=== PATIENT | male | born 1965 | race Caucasian/White ===

== ENCOUNTER 2021-01-24 11:01 | Emergency (ER) | payer OTHER ==
[2021-01-24 11:39] VITALS: BP 146/87; PULSE 106; RESP 20; TEMP 99
[2021-01-24] MEDS ORDERED: SODIUM CHLORIDE 0.9% 500 ML 500 ML IV STA (13:14)
[2021-01-24] MEDS ORDERED: BAMLANIVIMAB (EUA) 700 MG, ETESEVIMAB (EUA) 1,400 MG in SODIUM CHLORIDE 0.9% 50 ML IVPB ONE (13:30)
[2021-01-24] MEDS ORDERED: SODIUM CHLORIDE 0.9% 50 ML IVPB ONE (13:30)
--- NOTE | 2021-01-24 15:21 | ED ---
URI HPI - General Chief Complaint: Upper Respiratory Infection Stated Complaint: covid+, wants infusion Time Seen by Provider: 01/24/21 12:30 Source: patient, RN notes reviewed Mode of arrival: ambulatory Limitations: no limitations - History of Present Illness Initial Comments: Patient is a 55-year-old male with history of diabetes, hypertension, presenting to the emergency department requesting: Antibodies. Patient and his were both tested yesterday at urgent care, they were both positive. Patient states his symptoms began days ago with fevers, chills, no cough. He denies any nausea or vomiting, his appetite has been a little bit lower but still able to drink lots of fluids. He did take Tylenol about 1 hour prior to arrival. He denies any chest pain or shortness of breath. He has no further complaints at this time. His vital signs are stable upon arrival. - Related Data Home Medications Medication Instructions Recorded Confirmed Atorvastatin [Lipitor] 10 mg PO DAILY 01/24/21 01/24/21 Empagliflozin [Jardiance] 25 mg PO DAILY 01/24/21 01/24/21 Lisinopril-Hctz 10-12.5 mg 1 tab PO DAILY 01/24/21 01/24/21 [Zestoretic 10-12.5] Multivitamins, Thera [Multivitamin 1 tab PO DAILY 01/24/21 01/24/21 (formulary)] metFORMIN HCL 500 mg PO HS 01/24/21 01/24/21 Previous Rx's Medication Instructions Recorded Albuterol Inhaler [Ventolin Hfa 1 puff INHALATION RT-QID PRN #8 gm 01/24/21 Inhaler] Allergies Allergy/AdvReac Type Severity Reaction Status Date / Time Penicillins Allergy Unknown Verified 01/24/21 14:56 Review of Systems ROS Statement: Those systems with pertinent positive or pertinent negative responses have been documented in the HPI. ROS Other: All systems not noted in ROS Statement are negative. 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 Patient is nontoxic and in no acute distress. HEAD: Atraumatic, normocephalic. EYES: Pupils equal round and reactive to light, extraocular movements intact, sclera anicteric, conjunctiva are normal. Eyelids were unremarkable. ENT: Moist mucous membranes. NECK: Normal range of motion, supple without lymphadenopathy or JVD. LUNGS: Unlabored respirations. Breath sounds clear to auscultation bilaterally and equal. No wheezes rales or rhonchi. HEART: Regular rate and rhythm without murmurs, rubs or gallops. ABDOMEN: Soft, nontender, normoactive bowel sounds. No guarding, no rebound. No masses appreciated. MUSCULOSKELETAL: Normal extremities with adequate strength and normal range of motion, no pitting or edema. No clubbing or cyanosis. NEUROLOGICAL: Patient is alert and oriented x 3. SKIN: Warm, Dry, normal turgor, no rashes or lesions noted. Limitations: no limitations Course Vital Signs 01/24/21 11:36 Temperature 99.0 F Pulse Rate 106 H Respiratory 20 Rate Blood Pressure 146/87 O2 Sat by Pulse 95 Oximetry Medical Decision Making - Medical Decision Making Patient is a 55-year-old male here requesting covid Antibodies. Patient and his are both tested yesterday, both are positive. I symptoms for about 4 days. His vital signs are stable upon arrival, exam is unremarkable. Patient did receive covid Antibodies infusion, no adverse side effects. I will prescribe him an albuterol inhaler for home. Recommend any Tylenol or Motrin for any fevers or body aches, continue to increase fluids. He is agreeable to this plan of care and he is stable for discharge. Disposition Clinical Impression: COVID-19 Disposition: HOME SELF-CARE Condition: Stable Instructions (If sedation given, give patient instructions): Coronavirus Disease 2019 (COVID-19) Additional Instructions: Please return to the Emergency Department if symptoms worsen or any other concerns. Use inhaler as needed for any shortness of breath. May take Tylenol and/or Motrin for any fevers or body aches. Continue to increase your fluids. Follow-up with your primary care as needed. Prescriptions: Albuterol Inhaler [Ventolin Hfa Inhaler] 1 puff INHALATION RT-QID PRN #8 gm PRN Reason: Shortness Of Breath Is patient prescribed a controlled substance at d/c from ED?: No Referrals: Arturo Moran MD [Primary Care Provider] - 1-2 days Time of Disposition: 15:21
== END 2021-01-24 15:51 | disposition home or self-care (01) ==
LOC: EC 11:01
DX: U07.1 COVID-19 (principal); E11.9 Type 2 diabetes mellitus without complications; I10 Essential (primary) hypertension; Z88.0 Allergy status to penicillin; Z79.899 Other long term (current) drug therapy; Z79.84 Long term (current) use of oral hypoglycemic drugs
CPT/HCPCS: 99283; 96365; 96361; J3490

== ENCOUNTER 2021-06-29 09:43 | Emergency (ER) | payer OTHER ==
[2021-06-29] MEDS ORDERED: KETOROLAC 15 MG/ML 1 ML VIAL IM STA (10:20)
--- NOTE | 2021-06-29 10:44 | ED ---
General Adult HPI - General Chief complaint: Urogenital Stated complaint: Groin Pain/Swelling Time Seen by Provider: 06/29/21 10:04 Source: patient Mode of arrival: ambulatory Limitations: no limitations - History of Present Illness Initial comments: This 55-year-old male with past medical history of diabetes mellitus and hypertension presents to the emergency department with scrotal swelling and pain 5 days. Patient states he has had this on and off for years, however he states he usually goes away on its own within 2 days. Patient states that scrotal swelling is worse on the left side. Patient states she has been taking ibuprofen, Tylenol and icing his scrotum which has slightly seemed to help. Patient states pain is 4/10. Patient describes the pain as pressure and states he gets episodic burning. Patient states she is sexually active only with his . Patient denies any trouble urinating. He denies any urinary burning, urgency, frequency, dribbling. Patient states he has had similar experiences in his past and states one time he did have a UTI which was causing his symptoms. Patient states his primary care doctor is Dr. Moran did check him for prostate cancer about 5-6 months ago which did come back negative. He denies any change in his bowel or bladder. He denies any fever, nausea or vomiting. Patient denies any chest pain, shortness of breath, abdominal pain, heaviness, dizziness, headache, change in vision. - Related Data Home Medications Medication Instructions Recorded Confirmed Atorvastatin [Lipitor] 10 mg PO DAILY 01/24/21 06/29/21 Empagliflozin [Jardiance] 25 mg PO DAILY 01/24/21 06/29/21 Multivitamins, Thera [Multivitamin 1 tab PO DAILY 01/24/21 06/29/21 (formulary)] metFORMIN HCL 500 mg PO HS 01/24/21 06/29/21 Lisinopril-Hctz 20-12.5 mg 1 tab PO DAILY 06/29/21 06/29/21 [Zestoretic 20-12.5] [place]-3 Fatty Acids/Fish Oil [Fish 1 cap PO HS 06/29/21 06/29/21 Oil 1,000 mg Softgel] Allergies Allergy/AdvReac Type Severity Reaction Status Date / Time Penicillins Allergy Unknown Verified 06/29/21 11:18 Review of Systems ROS Statement: Those systems with pertinent positive or pertinent negative responses have been documented in the HPI. ROS Other: All systems not noted in ROS Statement are negative. 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 Absent: scleral icterus, conjunctival injection, periorbital swelling ENT exam: Present: normal exam, mucous membranes moist Neck exam: Present: normal inspection, full ROM. Absent: tenderness, meningismus, lymphadenopathy Respiratory exam: Present: normal lung sounds bilaterally. Absent: respiratory distress, wheezes, rales, rhonchi, stridor Cardiovascular Exam: Present: regular rate, normal rhythm, normal heart sounds. Absent: systolic murmur, diastolic murmur, rubs, gallop, clicks GI/Abdominal exam: Present: soft, normal bowel sounds. Absent: distended, tenderness, guarding, rebound, rigid exam: Present: testicular tenderness (Bilateral testicles tender to palpation. Scrotum with slight swelling on left side. No mass palpated.) Extremities exam: Present: normal inspection, full ROM, normal capillary refill. Absent: tenderness, pedal edema, joint swelling, calf tenderness Back exam: Present: normal inspection, full ROM. Absent: CVA tenderness (R), CVA tenderness (L), paraspinal tenderness, vertebral tenderness Neurological exam: Present: alert, oriented X3, CN II-XII intact, normal gait Psychiatric exam: Present: normal affect, normal mood Skin exam: Present: warm, dry, intact, normal color. Absent: rash Course Vital Signs 06/29/21 09:51 Temperature 97.3 F L Pulse Rate 82 Respiratory 18 Rate Blood Pressure 161/91 O2 Sat by Pulse 96 Oximetry Medical Decision Making - Medical Decision Making Ultrasound scrotum with Doppler impression: No sonographic evidence for testicular torsion. Left greater than right varicocele. Lack of incomplete color flow within the right-sided varicocele could reflect slow flow. Thrombosed varicoceles are less likely given that the pain is on left side. Small left hydrocele. Urine without any ketones, blood, nitrites. Glucose 4+. Patient states he does take his glucose daily and states it was a little bit high today at 172, He did take his diabetic medication at home and states he'll continue to check it throughout the day. Prior to discharge patient states the Toradol shot did significantly decrease his pain. Patient to follow-up with urologist in next 1-2 days.. Patient to follow-up with his primary care prov ider next 1-2 days. Strict return precautions were discussed. Patient verbally agreed to plan. Patient sent home in stable condition. Discussed case and findings in detail with my attending, . - Lab Data Lab Results 06/29/21 Range/Units 11:40 Urine Color Yellow Urine Appearance Clear (Clear) Urine pH 6.5 (5.0-8.0) Ur Specific [place] 1.031 (1.001-1.035) Urine Protein Negative (Negative) Urine Glucose (UA) 4+ H (Negative) Urine Ketones Negative (Negative) Urine Blood Negative (Negative) Urine Nitrite Negative (Negative) Urine Bilirubin Negative (Negative) Urine Urobilinogen <2.0 (<2.0) mg/dL Ur Leukocyte Esterase Negative (Negative) Disposition Clinical Impression: Bilateral varicoceles, Hydrocele, left Disposition: HOME SELF-CARE Condition: Stable Instructions (If sedation given, give patient instructions): Hydrocele (ED), Varicocele (ED) Additional Instructions: Please follow-up with the urologist and primary care provider next 1-2 days. Return to the emergency department with any new, worsening or concerning symptoms. Is patient prescribed a controlled substance at d/c from ED?: No Referrals: Arturo Moran MD [Primary Care Provider] - 1-2 days Reji Acuña MD [STAFF PHYSICIAN] - 1-2 days Time of Disposition: 12:11
--- NOTE | 2021-06-29 11:23 | US ---
EXAMINATION TYPE: US scrotum with doppler. TECHNIQUE: Grayscale and color Doppler Duplex imaging performed of the scrotum. DATE OF EXAM: 06/29/2021 COMPARISON: NONE CLINICAL HISTORY: 55-year-old male pain/swelling. On and off left testicle pain for 8 years, perineum pain also, no swelling, no injury FINDINGS: EXAM MEASUREMENTS: TESTICLES: Right Testicle: 2.3 x 2.0 x 1.0 cm Left Testicle: 3.9 x 2.7 x 1.7 cm Doppler performed to assess for testicular vascularity; good bilateral color flow and waveforms are s een. There is no evidence of testicular torsion. EPIDIDYMIS HEAD: Right Epididymis: 0.7 cm Left Epididymis: 1.2 cm Presence of hydroceles: mild lateral to left testicle Presence of varicoceles: bilateral vessels seen lateraL to testicles *on the right vessels did not fully fill with color, even with valsalva, possibly due to slow flow *on the left there is a larger collection of varicose vessels that appeared to dilate with va lsalva Docket Specialist notes:imaging of perineum appears wnl IMPRESSION: 1. No sonographic evidence for testicular torsion. 2. Left greater than right varicoceles. The lack of incomplete color flow within the right-sided vari coceles could reflect very slow flow. Thrombosed varicoceles are less likely given that pain is on th e left side. 3. Small hydrocele on the left.
[2021-06-29 12:01] LABS: Appearance,Urine Clear (Clear); Bilirubin,Urine Negative (Negative); Blood,Urine Negative (Negative); Color,Urine Yellow; Glucose,Urine (UA) 4+ (Negative); Ketones,Urine Negative (Negative); Leukocyte Esterase,Urine Negative (Negative); Nitrite,Urine Negative (Negative); PH, Urine 6.5 (5.0-8.0); Protein,Urine Negative (Negative); Specific Gravity,Urine 1.031 (1.001-1.035); Urobilinogen,Urine <2.0 mg/dL (<2.0)
[2021-06-29 12:36] VITALS: BP 128/78; PULSE 78; RESP 16; TEMP 98.2
== END 2021-06-29 12:35 | disposition home or self-care (01) ==
LOC: EC 09:43
DX: I86.1 Scrotal varices (principal); N43.3 Hydrocele, unspecified; E11.9 Type 2 diabetes mellitus without complications; I10 Essential (primary) hypertension; Z88.0 Allergy status to penicillin
CPT/HCPCS: 81003; 93975; 76870; 99284; 96372; J1885

== ENCOUNTER 2021-07-15 18:03 | Observation (INO) | payer OTHER ==
[~2021-07-15 18:03] MED LIST: BUDESONIDE 1 MG/2 ML NEBU INHALATION ONE
[2021-07-15] MEDS ORDERED: IPRATROPIUM-ALBUTEROL 3 ML NEB INHALATION STA (18:38)
[2021-07-15] MEDS ORDERED: MAGNESIUM SULFATE-D5W PMX 1 GM in DEXTROSE/WATER 1 100ML.BAG IVPB STA (18:38)
[2021-07-15] MEDS ORDERED: methylPREDNISolone SOD SUCCI 125 MG/2 ML VIAL IV STA (18:38)
[2021-07-15 19:07] LABS: AST 52 U/L (17-59); African American GFR (CKD) >90 (>60 ml/min/1.73 sqM); Albumin 4.6 g/dL (3.5-5.0); Anion Gap 12 mmol/L; Blood Urea Nitrogen 14 mg/dL (9-20); Calcium 9.3 mg/dL (8.4-10.2); Carbon Dioxide 25 mmol/L (22-30); Chloride 104 mmol/L (98-107); Glucose 248 mg/dL (74-99); Non-African American GFR(CKD) 80 (>60 ml/min/1.73 sqM); Sodium 141 mmol/L (137-145); Total Bilirubin 0.8 mg/dL (0.2-1.3)
[2021-07-15 19:09] LABS: Basophils % (A) 1 %; Eosinophils # (A) 0.1 k/uL (0-0.7); Eosinophils % (A) 2 %; HCT 46.3 % (39.0-53.0); HGB 16.2 gm/dL (13.0-17.5); Lymphocytes # (A) 2.1 k/uL (1.0-4.8); Lymphocytes % (A) 31 %; MCH 28.6 pg (25.0-35.0); MCV 81.9 fL (80.0-100.0); Mean Platelet Volume 9.2; Monocytes # (A) 0.4 k/uL (0-1.0); Monocytes % (A) 7 %; Neutrophils % (A) 58 %; Platelet Count 192 k/uL (150-450); RBC 5.65 m/uL (4.30-5.90); RDW 13.9 % (11.5-15.5); WBC 6.8 k/uL (3.8-10.6)
--- NOTE | 2021-07-15 19:12 | ED ---
General Adult HPI - General Chief complaint: Shortness of Breath Stated complaint: MEGHANN Time Seen by Provider: 07/15/21 18:10 Source: patient Mode of arrival: ambulatory Limitations: no limitations - History of Present Illness Initial comments: 55-year-old male with past medical history of diabetes, hypertension, recurrent bronchitis presents to the emergency department with shortness of breath. He has been short of breath since Saturday after he developed symptoms of the common cold. Admits to nasal congestion, nonproductive cough with intermittent chills. Denies any sick contacts with similar symptoms. Did have Covid last January and received antibodies. He is not vaccinated against Covid. He denies any chest pain. No previous cardiac disease. No history of heart failure. Denies history of DVT or PE. Patient comes in diffusely wheezy. He uses his inhaler only when needed. Did use a couple times today without improvement in his symptoms. 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 No other alleviating, precipitating or modifying factors - Related Data Home Medications Medication Instructions Recorded Confirmed Atorvastatin [Lipitor] 10 mg PO DAILY 01/24/21 07/15/21 Empagliflozin [Jardiance] 25 mg PO DAILY 01/24/21 07/15/21 Multivitamins, Thera [Multivitamin 1 tab PO DAILY 01/24/21 07/15/21 (formulary)] metFORMIN HCL 500 mg PO HS 01/24/21 07/15/21 Lisinopril-Hctz 20-12.5 mg 1 tab PO DAILY 06/29/21 07/15/21 [Zestoretic 20-12.5] [place]-3 Fatty Acids/Fish Oil [Fish 1 cap PO HS 06/29/21 07/15/21 Oil 1,000 mg Softgel] Doxycycline Hyclate 100 mg PO BID 07/15/21 07/15/21 Tamsulosin [Flomax] 0.4 mg PO DAILY 07/15/21 07/15/21 Allergies Allergy/AdvReac Type Severity Reaction Status Date / Time Penicillins Allergy Unknown Verified 07/15/21 19:23 Review of Systems ROS Statement: Those systems with pertinent positive or pertinent negative responses have been documented in the HPI. ROS Other: All systems not noted in ROS Statement are negative. 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 Absent: scleral icterus, conjunctival injection, periorbital swelling ENT exam: Present: normal exam, mucous membranes moist Neck exam: Present: normal inspection. Absent: tenderness, meningismus, lymphadenopathy Respiratory exam: Present: wheezes, accessory muscle use, decreased breath sounds. Absent: respiratory distress, rales, rhonchi, stridor Cardiovascular Exam: Present: regular rate, normal rhythm, normal heart sounds. Absent: systolic murmur, diastolic murmur, rubs, gallop, clicks GI/Abdominal exam: Present: soft, normal bowel sounds. Absent: distended, tenderness, guarding, rebound, rigid Extremities exam: Present: normal inspection, full ROM, normal capillary refill. Absent: tenderness, pedal edema, joint swelling, calf tenderness Back exam: Present: normal inspection Neurological exam: Present: alert, oriented X3, CN II-XII intact Psychiatric exam: Present: normal affect, normal mood Skin exam: Present: warm, dry, intact, normal color. Absent: rash Course Vital Signs 07/15/21 07/15/21 07/15/21 18:04 19:24 19:25 Temperature 99 F Pulse Rate 100 110 H 103 H Respiratory 26 H 20 Rate Blood Pressure 184/134 135/69 O2 Sat by Pulse 96 94 L Oximetry 07/15/21 07/15/21 07/15/21 19:33 20:51 21:33 Temperature Pulse Rate 105 H 71 101 H Respiratory 18 18 Rate Blood Pressure 138/71 144/71 O2 Sat by Pulse 95 95 Oximetry EKG Findings - EKG Comments: EKG Findings:: EKG demonstrates sinus tachycardia with a rate of 108. NH inter shanelle 167. QRS 98. QTC 392. No acute ST segment elevations or depressions Medical Decision Making - Medical Decision Making Upon arrival patient was placed into room 2. He is diffusely wheezy, hypertensive and tachycardic. He is placed on nasal cannula. IV is established laboratory studies are conducted. Patient does receive a breathing treatment. Laboratory studies are reviewed and lactic is 2.6. Covid and influenza are not detected. Chest x-ray demonstrates no acute process. He was given 125 of Solu-Medrol and a gram of magnesium. Patient does get up to evaluate the bathroom and desats to 88%. Due to his hypoxia with ambulation recommended at least overnight observation for which the patient did agree to. Patient will be admitted to the [facility]. - Lab Data Result diagrams: 07/16/21 02:34 07/16/21 02:34 Lab Results 07/15/21 07/15/21 07/15/21 Range/Units 18:47 18:47 18:47 WBC 6.8 (3.8-10.6) k/uL RBC 5.65 (4.30-5.90) m/uL Hgb 16.2 (13.0-17.5) gm/dL Hct 46.3 (39.0-53.0) % MCV 81.9 (80.0-100.0) fL MCH 28.6 (25.0-35.0) pg MCHC 35.0 (31.0-37.0) g/dL RDW 13.9 (11.5-15.5) % Plt Count 192 (150-450) k/uL MPV 9.2 Neutrophils % 58 % Lymphocytes % 31 % Monocytes % 7 % Eosinophils % 2 % Basophils % 1 % Neutrophils # 4.0 (1.3-7.7) k/uL Lymphocytes # 2.1 (1.0-4.8) k/uL Monocytes # 0.4 (0-1.0) k/uL Eosinophils # 0.1 (0-0.7) k/uL Basophils # 0.0 (0-0.2) k/uL PT (9.0-12.0) sec INR (<1.2) APTT (22.0-30.0) sec Sodium (137-145) mmol/L Potassium (3.5-5.1) mmol/L Chloride (98-107) mmol/L Carbon Dioxide (22-30) mmol/L Anion Gap mmol/L BUN (9-20) mg/dL Creatinine (0.66-1.25) mg/dL Est GFR (CKD-EPI)AfAm (>60 ml/min/1.73 sqM) Est GFR (CKD-EPI)NonAf (>60 ml/min/1.73 sqM) Glucose (74-99) mg/dL Lactic Ac Sepsis Rflx Plasma Lactic Acid Addi (0.7-2.0) mmol/L Calcium (8.4-10.2) mg/dL Magnesium (1.6-2.3) mg/dL Total Bilirubin (0.2-1.3) mg/dL AST (17-59) U/L ALT (4-49) U/L Alkaline Phosphatase (38-126) U/L Troponin I (0.000-0.034) ng/mL NT-Pro-B Natriuret Pep pg/mL Total Protein (6.3-8.2) g/dL Albumin (3.5-5.0) g/dL Coronavirus (PCR) Not Detected (Not Detectd) Influenza Type A RNA Not Detected (Not Detectd) Influenza Type B (PCR) Not Detected (Not Detectd) 07/15/21 07/15/21 07/15/21 Range/Units 18:47 18:47 18:47 WBC (3.8-10.6) k/uL RBC (4.30-5.90) m/uL Hgb (13.0-17.5) gm/dL Hct (39.0-53.0) % MCV (80.0-100.0) fL MCH (25.0-35.0) pg MCHC (31.0-37.0) g/dL RDW (11.5-15.5) % Plt Count (150-450) k/uL MPV Neutrophils % % Lymphocytes % % Monocytes % % Eosinophils % % Basophils % % Neutrophils # (1.3-7.7) k/uL Lymphocytes # (1.0-4.8) k/uL Monocytes # (0-1.0) k/uL Eosinophils # (0-0.7) k/uL Basophils # (0-0.2) k/uL PT 10.2 (9.0-12.0) sec INR 0.9 (<1.2) APTT 22.8 (22.0-30.0) sec Sodium 141 (137-145) mmol/L Potassium 4.3 (3.5-5.1) mmol/L Chloride 104 (98-107) mmol/L Carbon Dioxide 25 (22-30) mmol/L Anion Gap 12 mmol/L BUN 14 (9-20) mg/dL Creatinine 1.06 (0.66-1.25) mg/dL Est GFR (CKD-EPI)AfAm >90 (>60 ml/min/1.73 sqM) Est GFR (CKD-EPI)NonAf 80 (>60 ml/min/1.73 sqM) Glucose 248 H (74-99) mg/dL Lactic Ac Sepsis Rflx Plasma Lactic Acid Addi 2.6 H* (0.7-2.0) mmol/L Calcium 9.3 (8.4-10.2) mg/dL Magnesium 2.2 (1.6-2.3) mg/dL Total Bilirubin 0.8 (0.2-1.3) mg/dL AST 52 (17-59) U/L ALT 69 H (4-49) U/L Alkaline Phosphatase 74 (38-126) U/L Troponin I (0.000-0.034) ng/mL NT-Pro-B Natriuret Pep pg/mL Total Protein 8.0 (6.3-8.2) g/dL Albumin 4.6 (3.5-5.0) g/dL Coronavirus (PCR) (Not Detectd) Influenza Type A RNA (Not Detectd) Influenza Type B (PCR) (Not Detectd) 07/15/21 07/15/21 07/15/21 Range/Units 18:47 18:47 19:19 WBC (3.8-10.6) k/uL RBC (4.30-5.90) m/uL Hgb (13.0-17.5) gm/dL Hct (39.0-53.0) % MCV (80.0-100.0) fL MCH (25.0-35.0) pg MCHC (31.0-37.0) g/dL RDW (11.5-15.5) % Plt Count (150-450) k/uL MPV Neutrophils % % Lymphocytes % % Monocytes % % Eosinophils % % Basophils % % Neutrophils # (1.3-7.7) k/uL Lymphocytes # (1.0-4.8) k/uL Monocytes # (0-1.0) k/uL Eosinophils # (0-0.7) k/uL Basophils # (0-0.2) k/uL PT (9.0-12.0) sec INR (<1.2) APTT (22.0-30.0) sec Sodium (137-145) mmol/L Potassium (3.5-5.1) mmol/L Chloride (98-107) mmol/L Carbon Dioxide (22-30) mmol/L Anion Gap mmol/L BUN (9-20) mg/dL Creatinine (0.66-1.25) mg/dL Est GFR (CKD-EPI)AfAm (>60 ml/min/1.73 sqM) Est GFR (CKD-EPI)NonAf (>60 ml/min/1.73 sqM) Glucose (74-99) mg/dL Lactic Ac Sepsis Rflx Y Plasma Lactic Acid Addi (0.7-2.0) mmol/L Calcium (8.4-10.2) mg/dL Magnesium (1.6-2.3) mg/dL Total Bilirubin (0.2-1.3) mg/dL AST (17-59) U/L ALT (4-49) U/L Alkaline Phosphatase (38-126) U/L Troponin I <0.012 (0.000-0.034) ng/mL NT-Pro-B Natriuret Pep <11 pg/mL Total Protein (6.3-8.2) g/dL Albumin (3.5-5.0) g/dL Coronavirus (PCR) (Not Detectd) Influenza Type A RNA (Not Detectd) Influenza Type B (PCR) (Not Detectd) Disposition Clinical Impression: Bronchospasm, Tachycardia, Hypoxia Disposition: ADMITTED IP TO THIS HOSP Condition: Stable Is patient prescribed a controlled substance at d/c from ED?: No Decision to Admit Reason: Admit from EC Decision Date: 07/15/21 Decision Time: 20:48
[2021-07-15 19:19] LABS: Potassium 4.3 mmol/L (3.5-5.1)
[2021-07-15 19:20] LABS: ALT 69 U/L (4-49); Alkaline Phosphatase 74 U/L (38-126); Magnesium 2.2 mg/dL (1.6-2.3)
--- NOTE | 2021-07-15 19:21 | XR ---
EXAMINATION TYPE: XR chest 2V DATE OF EXAM: 07/15/2021 COMPARISON: 01/31/2014 HISTORY: Difficulty breathing TECHNIQUE: 2 views FINDINGS: Heart and mediastinum are normal. Lungs are clear. Diaphragm is normal. Bony thorax is inta ct. IMPRESSION: Normal chest. No change.
[2021-07-15 19:24] LABS: INR 0.9 (<1.2); Partial Thromboplastin Time 22.8 sec (22.0-30.0); Prothrombin Time 10.2 sec (9.0-12.0)
[2021-07-15] MEDS ORDERED: NALOXONE 0.4 MG/ML 1 ML VIAL IV PRN (20:49)
[2021-07-15 22:24] LABS: Glucose,Whole Blood 261 mg/dL (75-99)
[2021-07-15] MEDS ORDERED: IPRATROPIUM-ALBUTEROL 3 ML NEB INHALATION PRN (23:07)
[2021-07-15] MEDS ORDERED: INSULIN ASPART (NovoLOG) 100 UNIT/ML VIAL SQ SCH (23:13)
[2021-07-15] MEDS: IPRATROPIUM-ALBUTEROL 3 ML NEB INHALATION SCH (23:56)
[2021-07-16 00:10] LABS: Glucose,Whole Blood 277 mg/dL (75-99)
[2021-07-16] MEDS: INSULIN ASPART (NovoLOG) 100 UNIT/ML VIAL SQ SCH ×5 (00:46→20:36)
[2021-07-16] MEDS: methylPREDNISolone SOD SUCCI 40 MG/ML 1 ML VIAL IV SCH ×3 (02:54→20:36)
[2021-07-16 03:13] LABS: Basophils % (A) 0 %; Eosinophils % (A) 0 %; HCT 48.7 % (39.0-53.0); HGB 15.9 gm/dL (13.0-17.5); Lymphocytes # (A) 0.7 k/uL (1.0-4.8); Lymphocytes % (A) 9 %; MCHC 32.6 g/dL (31.0-37.0); MCV 85.8 fL (80.0-100.0); Mean Platelet Volume 9.2; Monocytes # (A) 0.1 k/uL (0-1.0); Monocytes % (A) 2 %; Neutrophils # (A) 7.2 k/uL (1.3-7.7); Neutrophils % (A) 89 %; Platelet Count 172 k/uL (150-450); RBC 5.67 m/uL (4.30-5.90); RDW 13.4 % (11.5-15.5); WBC 8.1 k/uL (3.8-10.6)
[2021-07-16] MEDS: IPRATROPIUM-ALBUTEROL 3 ML NEB INHALATION SCH ×5 (04:40→20:28)
[2021-07-16] MEDS: SODIUM CHLORIDE 0.9% 1,000 ML IV SCH ×2 (05:45→20:36)
[2021-07-16 07:11] LABS: Glucose,Whole Blood 304 mg/dL (75-99)
[2021-07-16] MEDS: BUDESONIDE 1 MG/2 ML NEBU INHALATION SCH ×2 (08:18→20:28)
[2021-07-16] MEDS ORDERED: FAMOTIDINE 20 MG/2 ML VIAL IV SCH (09:30)
[2021-07-16 09:31] LABS: African American GFR (CKD) 80.6 (60.0-200.0); Anion Gap 17.3 mmol/L (10.00-18.00); BUN/Creat Ratio 12.2 Ratio (12.00-20.00); Blood Urea Nitrogen 14.4 mg/dL (9.0-27.0); Calcium 9.2 mg/dL (8.7-10.3); Carbon Dioxide 21.5 mmol/L (20.0-27.5); Non-African American GFR(CKD) 69.5 (60.0-200.0); Potassium 4.3 mmol/L (3.5-5.5)
[2021-07-16] MEDS: LISINOPRIL-HCTZ 20-12.5 MG 1 EACH TAB PO SCH (09:36)
[2021-07-16] MEDS: MULTIVITAMINS, THERA 1 EACH TAB PO SCH (09:36)
[2021-07-16] MEDS: ATORVASTATIN 10 MG TAB PO SCH (09:36)
[2021-07-16] MEDS: TAMSULOSIN 0.4 MG CAP.ER.24H PO SCH (09:36)
[2021-07-16] MEDS: amLODIPine 5 MG TAB PO SCH (11:42)
[2021-07-16] MEDS: HEPARIN SODIUM,PORCINE/PF 5,000 UNIT/0.5 ML SYRINGE SQ SCH ×3 (11:42→20:36)
[2021-07-16] MEDS: LINAGLIPTIN 5 MG TABLET PO SCH (11:43)
[2021-07-16 12:07] LABS: Glucose,Whole Blood 357 mg/dL (75-99)
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
[2021-07-16] MEDS ORDERED: SODIUM CHLORIDE 0.9% 500 ML 500 ML IV ONE (12:40)
--- NOTE | 2021-07-16 13:24 | P.HPIM ---
History of Present Illness This is a pleasant 55 years old male with past medical history of diabetes mellitus type 2, hypertension, hyperlipidemia. He is patient of Dr. Moran Presents because of worsening dyspnea or several days from , for the last 3-4 days associated with cough and phlegm. No chest pain. No diarrhea or dysuria. No fever. No headache or numbness or weakness. He is also on doxycycline prescribed for him by his urologist for possible postoperative infection, he was following with them for his right testicular pain, stated that his testis is much better now and he does not want to be examined during my encounter. Also he states that he has a dog pet at home. He denies smoking, alcohol or illicit drugs Patient is slightly tachycardic around 100-106. Written 96% on room air. Afebrile. Congestive vitals stable. Labs reviewed showing unremarkable cbc, inr 0.9. Lactic acid elevated 2.6 and currently 5.1. Glucose elevated on admission to 48 and more than 200. Trace of BMP, liver enzymes and troponin are unremarkable. ProBNP less than 11. 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 HEENT: No recent visual problems or hearing problems. Denied any sore throat. CARDIOVASCULAR: No orthopnea, PND, no palpitations, no syncope. PULMONARY: No chest wall tenderness, no hemoptysis. GASTROINTESTINAL: No diarrhea, no nausea, no vomiting, no abdominal pain. Normoactive bowel sounds. NEUROLOGICAL: No headaches, no weakness, no numbness. HEMATOLOGICAL: Denies any bleeding or petechiae. GENITOURINARY: Denies any burning micturition, frequency, or urgency. MUSCULOSKELETAL/RHEUMATOLOGICAL: Denies any joint pain, swelling, or any muscle pain. ENDOCRINE: Denies any polyuria or polydipsia. Past Medical History Past Medical History: Diabetes Mellitus, Hypertension Additional Past Medical History / Comment(s): CMV, enlarged spleen, chronic bronchitis, Covid in january 2021 History of Any Multi-Drug Resistant Organisms: None Reported Past Surgical History: Cholecystectomy Past Anesthesia/Blood Transfusion Reactions: No Reported Reaction Past Psychological History: No Psychological Hx Reported Smoking Status: Never smoker Past Alcohol Use History: None Reported Past Drug Use History: None Reported Medications and Allergies Home Medications Medication Instructions Recorded Confirmed Type Atorvastatin [Lipitor] 10 mg PO DAILY 01/24/21 07/15/21 History Empagliflozin [Jardiance] 25 mg PO DAILY 01/24/21 07/15/21 History Multivitamins, Thera [Multivitamin 1 tab PO DAILY 01/24/21 07/15/21 History (formulary)] metFORMIN HCL 500 mg PO HS 01/24/21 07/15/21 History Lisinopril-Hctz 20-12.5 mg 1 tab PO DAILY 06/29/21 07/15/21 History [Zestoretic 20-12.5] Wanda-3 Fatty Acids/Fish Oil [Fish 1 cap PO HS 06/29/21 07/15/21 History Oil 1,000 mg Softgel] Doxycycline Hyclate 100 mg PO BID 07/15/21 07/15/21 History Tamsulosin [Flomax] 0.4 mg PO DAILY 07/15/21 07/15/21 History Allergies Allergy/AdvReac Type Severity Reaction Status Date / Time Penicillins Allergy Unknown Verified 07/15/21 19:23 Physical Exam Vitals: Vital Signs Temp Pulse Pulse Resp BP BP BP 07/16/21 08:40 100 07/16/21 08:22 106 H 07/16/21 07:00 97.7 F 109 H 18 151/76 07/16/21 04:58 84 07/16/21 04:40 76 07/16/21 03:22 98.4 F 72 17 148/81 07/16/21 02:00 93 16 07/16/21 00:15 100 07/15/21 23:58 96 07/15/21 22:30 98.3 F 93 17 154/79 07/15/21 21:33 101 H 18 144/71 07/15/21 20:51 71 18 138/71 07/15/21 19:33 105 H 07/15/21 19:25 103 H 20 135/69 07/15/21 19:24 110 H 07/15/21 18:04 99 F 100 26 H 184/134 Pulse Ox 07/16/21 08:40 07/16/21 08:22 96 07/16/21 07:00 95 07/16/21 04:58 07/16/21 04:40 07/16/21 03:22 95 07/16/21 02:00 07/16/21 00:15 07/15/21 23:58 07/15/21 22:30 96 07/15/21 21:33 95 07/15/21 20:51 95 07/15/21 19:33 07/15/21 19:25 94 L 07/15/21 19:24 07/15/21 18:04 96 Intake and Output 07/15/21 07/16/21 07/16/21 22:59 06:59 14:59 Other: Voiding Method Toilet # Voids 2 Weight 133.81 kg GENERAL: The patient is alert and oriented x3, not in any acute distress. Well developed, well nourished. HEENT: Pupils are round and equally reacting to light. EOMI. No scleral icterus. No conjunctival pallor. Normocephalic, atraumatic. No pharyngeal erythema. No thyromegaly. CARDIOVASCULAR: S1 and S2 present. No murmurs, rubs, or gallops. - PULMONARY: Chest is clear to. Bilateral scattered wheezing ABDOMEN: Soft, nontender, nondistended, normoactive bowel sounds. No palpable organomegaly. MUSCULOSKELETAL: No joint swelling or deformity. EXTREMITIES: No cyanosis, clubbing, or pedal edema. NEUROLOGICAL: Gross neurological examination did not reveal any focal deficits. SKIN: No rashes. No petechiae Results CBC & Chem 7: 07/16/21 02:34 07/16/21 02:34 Labs: Abnormal Lab Results - Last 24 Hours (Table) 07/15/21 07/15/21 07/15/21 Range/Units 18:47 18:47 22:23 Lymphocytes # (1.0-4.8) k/uL Glucose 248 H (74-99) mg/dL POC Glucose (mg/dL) 261 H (75-99) mg/dL Plasma Lactic Acid Addi 2.6 H* (0.7-2.0) mmol/L ALT 69 H (4-49) U/L 07/15/21 07/16/21 07/16/21 Range/Units 23:08 00:09 02:34 Lymphocytes # 0.7 L (1.0-4.8) k/uL Glucose (74-99) mg/dL POC Glucose (mg/dL) 277 H (75-99) mg/dL Plasma Lactic Acid Addi 2.1 H* (0.7-2.0) mmol/L ALT (4-49) U/L 07/16/21 07/16/21 07/16/21 Range/Units 02:34 06:08 07:10 Lymphocytes # (1.0-4.8) k/uL Glucose (74-99) mg/dL POC Glucose (mg/dL) 304 H (75-99) mg/dL Plasma Lactic Acid Addi 4.1 H* 5.1 H* (0.7-2.0) mmol/L ALT (4-49) U/L Thrombosis Risk Factor Assmnt - Choose All That Apply Any of the Below Risk Factors Present?: Yes Each Factor Represents 1 point: Age 41-60 years, Obesity (BMI >25) Thrombosis Risk Factor Assessment Total Risk Factor Score: 2 Thrombosis Risk Factor Assessment Level: Low Risk Assessment and Plan Assessment: Acute asthma exacerbation Diabetes mellitus, type II, with hyperglycemia on admission recent history of prostate infection on doxycycline as per patient Hypertension Hyperlipidemia Obesity with BMI of 41.1 Plan: This is a pleasant 55 years old male with presents with COPD exacerbation Continue with IV Solu Medrol, and with Pulmicort. Continue with bronchodilator Pulmonary consult We recommend patient follow up with urologist as an outpatient Hold metformin due to high lactic acid and start linagliptin instead of januvia which is non formulary in this facility . Continue with insulin sliding scale. Check hemoglobin A1c.Start the patient on Amaryl 1 mg daily continue with lisinopril-hydrochlorothiazide 20-12.5 mg. Norvasc 5 mg Labs and medication were reviewed.. Continue same treatment. Continue with symptomatic treatment. Resume home medication. Monitor lytes and vitals. DVT and GI prophylaxis. Further recommendationsas per clinical course of the patient DVT prophylaxis: Subcutaneous heparin GI Prophylaxis: Pepcid Prognosis is guarded
[2021-07-16] MEDS: DOXYCYCLINE 100 MG CAP PO SCH ×2 (13:43→20:36)
[2021-07-16] MEDS: GLIMEPIRIDE 1 MG TAB PO SCH (13:44)
[2021-07-16 16:28] LABS: Glucose,Whole Blood 334 mg/dL (75-99)
[2021-07-16 20:15] VITALS: RESP 16
[2021-07-16 20:21] LABS: Glucose,Whole Blood 220 mg/dL (75-99)
[2021-07-16] MEDS: FAMOTIDINE 20 MG TAB PO SCH (20:36)
[2021-07-16] MEDS ORDERED: NON FORMULARY DRUG (Omega-3 Fatty Acids/Fish Oil [Fish Oil 1,000 Mg Softgel] 1 EACH Capsul PO SCH (21:00)
[2021-07-16] MEDS ORDERED: INSULIN ASPART (NovoLOG) 100 UNIT/ML VIAL SQ SCH (23:06)
[2021-07-17] MEDS: IPRATROPIUM-ALBUTEROL 3 ML NEB INHALATION SCH ×4 (00:01→11:58)
[2021-07-17] MEDS: methylPREDNISolone SOD SUCCI 40 MG/ML 1 ML VIAL IV SCH ×2 (02:07→11:37)
[2021-07-17 07:22] LABS: Glucose,Whole Blood 292 mg/dL (75-99)
[2021-07-17] MEDS: LINAGLIPTIN 5 MG TABLET PO SCH (07:30)
[2021-07-17] MEDS: FAMOTIDINE 20 MG TAB PO SCH (07:30)
[2021-07-17] MEDS: TAMSULOSIN 0.4 MG CAP.ER.24H PO SCH (07:30)
[2021-07-17] MEDS: ATORVASTATIN 10 MG TAB PO SCH (07:30)
[2021-07-17] MEDS: HEPARIN SODIUM,PORCINE/PF 5,000 UNIT/0.5 ML SYRINGE SQ SCH (07:30)
[2021-07-17] MEDS: DOXYCYCLINE 100 MG CAP PO SCH (07:30)
[2021-07-17] MEDS: MULTIVITAMINS, THERA 1 EACH TAB PO SCH (07:30)
[2021-07-17] MEDS: amLODIPine 5 MG TAB PO SCH (07:30)
[2021-07-17] MEDS: LISINOPRIL-HCTZ 20-12.5 MG 1 EACH TAB PO SCH (07:30)
[2021-07-17] MEDS: GLIMEPIRIDE 1 MG TAB PO SCH (07:30)
[2021-07-17] MEDS: SODIUM CHLORIDE 0.9% 1,000 ML IV SCH (07:31)
[2021-07-17] MEDS: INSULIN ASPART (NovoLOG) 100 UNIT/ML VIAL SQ SCH ×2 (07:31→12:15)
[2021-07-17] MEDS: BUDESONIDE 1 MG/2 ML NEBU INHALATION SCH (07:40)
[2021-07-17 08:10] VITALS: BP 134/75; TEMP 97.7
[2021-07-17] MEDS ORDERED: INSULIN DETEMIR (LEVEMIR) 100 UNIT/ML SYR SQ SCH (09:30)
[2021-07-17 09:31] LABS: African American GFR (CKD) 111.8 (60.0-200.0); Albumin 4.3 g/dL (3.8-4.9); Albumin/Globulin Ratio 1.95 (1.60-3.17); Anion Gap 12.4 mmol/L (10.00-18.00); BUN/Creat Ratio 21.67 Ratio (12.00-20.00); Blood Urea Nitrogen 19.5 mg/dL (9.0-27.0); Carbon Dioxide 21.6 mmol/L (20.0-27.5); Globulin 2.2 g/dL (1.6-3.3); Non-African American GFR(CKD) 96.5 (60.0-200.0); Potassium 4.8 mmol/L (3.5-5.5); Total Bilirubin 0.3 mg/dL (0.30-1.20); Total Protein 6.5 g/dL (6.2-8.2)
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
[2021-07-17 12:03] VITALS: PULSE 110
[2021-07-17 12:08] LABS: Glucose,Whole Blood 300 mg/dL (75-99)
[2021-07-17 12:44] VITALS: BMI 41.1
--- NOTE | 2021-07-17 21:57 | P.DS ---
Providers Date of admission: 07/15/21 20:49 Attending physician: Chan Bey MD Consults: 07/15/21 20:48 Consult Physician Urgent Consulting Provider: Asa Ramsay Consult Reason/Comments: acute bronchospasm, hypoxia Do you want consulting provider notified?: Yes Primary care physician: Arturo Moran Hospital Course: Final Diagnosis Acute bronchitis presenting with bronchospasm and wheezing as well as progressive dyspnea. Further pulmonary work outpatient for possible underlying asthma. Lactic acidosis on admission possible due to shortness of breath, held metformin and received IV hydration. Lactic acid has normalized. Diabetes mellitus, type II, with hyperglycemia on admission History of prostate infection on doxycycline as per patient Hypertension Hyperlipidemia Obesity with BMI of 41.1 Discharge Disposition Patient is stable for discharge home. Follow up with primary care and pulmonary services in the office. Patient is discharged on maintenance inhaler as well as albuterol inhaler as needed. Complete oral steroid taper. Patient instructed to continue amaryl for the next week while he finishes steroid taper and check blood glucose at home. Follow up with Dr Moran next week as well. If blood glucose remains elevated after stopping steroids can continue on amaryl. Monitor lactic acid level outpatient due to metformin use. 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 Per patient he gets bronchitis yearly, has never been diagnosed with asthma previously, no history of COPD. He denies a history of DVT, PE. His neighbor had been burning brush over the weekend and since patient reports cough, worsening dyspnea, and a raspy voice. Chronic conditions include diabetes mellitus type 2, hypertension, hyperlipidemia, negative work up in the past for sleep apnea. He is patient of Dr. Moran. He is also being treated with doxycycline by urologist for a possible postoperative infection and has been following with urology for right testicular pain, for which patient has deferred examination. Patient denies chest pain, fever, no recent illness. He denies smoking, illicit drug use or alcohol use. Initial work up consists of chest xray showing normal chest. Labs on admission reviewed showing unremarkable CBC, INR 0.9. Lactic acid elevated 2.6, 5.1, and trended down to 1.3 after receiving IV hydration Glucose elevated on admission to 248 and more than 300, Hgb A1C 8.3 BMP, liver enzymes and troponin are unremarkable. ProBNP less than 11. Influenza and coronavirus are undetected. Procalcitonin level 0.04. The EKG showed sinus tachycardia at time of admission along with a left anterior fascicular block and Q waves over the septal leads, likely old. Patient was started on IV solumedrol, bronchodilator, breathing treatments and admitted to hospital with consult placed to pulmonary services. 07/17/2021 Patient evaluated today sitting up in the chair. States his breathing has returned to normal. Patient has not required oxygen this hospital stay. Current oxygen saturation of 95% on room air. No wheezing noted on exam. Patient would like to be discharged home today. Discussed elevated blood glucose and elevated A1C patient is understanding of instructions and close monitoring of blood glucose to avoid hypoglycemia related to increased oral medications. Patient denies shortness of breath, denies cough, denies wheezing, denies chest pain. Tolerating ambulation, tolerating diet. He has remained afebrile. Heart rate 96, blood pressure 134/75. Lungs are clear, S1 S2 auscultated, abdomen is soft and nontender. Focal neurological exam is negative. Lactic acid has returned to normal. Patient will be discharged home on inhaled corticosteroid, albuterol inhaler as needed, in addition to a short oral steroid taper. Follow up with Dr Moran within 2-3 and patient will follow up in the pulmonary office in the next 7 to 10 days as recommended. Also recommend close monitoring of lactic acid outpatient. Please see medication reconciliation for a list of current medication. Thank you for allowing us to participate in the care of this patient. The impression and plan of care has been dictated by Cristina Hathaway, Nurse Practitioner as directed. Dr. Tacho MD I have performed a history and physical examination and medical decision making of this patient, discussed the same with the dictator, and agree with the dictators assessment and plan as written, documented as a scribe. Based on total visit time, I have performed more than 50% of this visit. Patient Condition at Discharge: Stable Plan - Discharge Summary New Discharge Prescriptions: New Glimepiride [Amaryl] 1 mg PO AC-BRKFST #30 tab Mometasone Inhalr 220 Mcg/Puff [Asmanex] 1 puff INHALATION BID #1 each Albuterol Inhaler [Ventolin Hfa Inhaler] 1 - 2 puff INHALATION RT-QID PRN #8 gm PRN Reason: Shortness Of Breath Or Wheezing metFORMIN HCL [Glucophage] 1,000 mg PO BID #60 tab amLODIPine [Norvasc] 5 mg PO DAILY #30 tab Famotidine [Pepcid] 20 mg PO BID #60 tab predniSONE 0 mg PO DIRECTED 4 Days #10 tab Continue Multivitamins, Thera [Multivitamin (formulary)] 1 tab PO DAILY Empagliflozin [Jardiance] 25 mg PO DAILY Atorvastatin [Lipitor] 10 mg PO DAILY Doxycycline Hyclate 100 mg PO BID Lisinopril-Hctz 20-12.5 mg [Zestoretic 20-12.5] 1 tab PO DAILY Orick-3 Fatty Acids/Fish Oil [Fish Oil 1,000 mg Softgel] 1 cap PO HS Tamsulosin [Flomax] 0.4 mg PO DAILY Discharge Medication List Atorvastatin [Lipitor] 10 mg PO DAILY 01/24/21 [History] Empagliflozin [Jardiance] 25 mg PO DAILY 01/24/21 [History] Multivitamins, Thera [Multivitamin (formulary)] 1 tab PO DAILY 01/24/21 [History] Lisinopril-Hctz 20-12.5 mg [Zestoretic 20-12.5] 1 tab PO DAILY 06/29/21 [History] Orick-3 Fatty Acids/Fish Oil [Fish Oil 1,000 mg Softgel] 1 cap PO HS 06/29/21 [History] Doxycycline Hyclate 100 mg PO BID 07/15/21 [History] Tamsulosin [Flomax] 0.4 mg PO DAILY 07/15/21 [History] Albuterol Inhaler [Ventolin Hfa Inhaler] 1 - 2 puff INHALATION RT-QID PRN #8 gm 07/17/21 [Rx] Famotidine [Pepcid] 20 mg PO BID #60 tab 07/17/21 [Rx] Glimepiride [Amaryl] 1 mg PO AC-BRKFST #30 tab 07/17/21 [Rx] Mometasone Inhalr 220 Mcg/Puff [Asmanex] 1 puff INHALATION BID #1 each 07/17/21 [Rx] amLODIPine [Norvasc] 5 mg PO DAILY #30 tab 07/17/21 [Rx] metFORMIN HCL [Glucophage] 1,000 mg PO BID #60 tab 07/17/21 [Rx] predniSONE 0 mg PO DIRECTED 4 Days #10 tab 07/17/21 [Rx] Follow up Appointment(s)/Referral(s): Arturo Moran MD [Primary Care Provider] - 1-2 days Asa Ramsay MD [STAFF PHYSICIAN] - 1 Week Patient Instructions/Handouts: Asthma (DC) Activity/Diet/Wound Care/Special Instructions: Follow up with Dr Moran next week to monitor blood glucose Increase metformin to 1000 mg PO BID Diet modification Albuterol inhaler as needed for shortness of breath or wheezing, 1-2 puffs every 4-6 hours Continue to use maintenance inhaler twice a day Follow up with pulmonary services in 1-2 weeks Discharge Disposition: HOME SELF-CARE
== END 2021-07-17 13:42 | disposition home or self-care (01) ==
LOC: EC 18:03 → 6NMEDSUR 20:49
PROVIDERS: ADMIT Internal Medicine; ATTEND Internal Medicine
DX: J20.9 Acute bronchitis, unspecified (principal); E87.2 Acidosis; E11.65 Type 2 diabetes mellitus with hyperglycemia; T38.0X5A Adverse effect of glucocorticoids and synthetic analogues, initial encounter; N41.9 Inflammatory disease of prostate, unspecified; I10 Essential (primary) hypertension; E78.5 Hyperlipidemia, unspecified; E66.9 Obesity, unspecified; Z68.41 Body mass index [BMI] 40.0-44.9, adult; R16.1 Splenomegaly, not elsewhere classified; R09.02 Hypoxemia; I44.4 Left anterior fascicular block; B25.9 Cytomegaloviral disease, unspecified; Z20.822 Contact with and (suspected) exposure to COVID-19; Z86.16 Personal history of COVID-19; Z79.899 Other long term (current) drug therapy; Z79.84 Long term (current) use of oral hypoglycemic drugs; Z88.0 Allergy status to penicillin; Z90.49 Acquired absence of other specified parts of digestive tract
CPT/HCPCS: 96376 ×2; 96361 ×2; 96372 ×2; 96375 ×2; 96365; 99285; 36415; 94640 ×6; 94760 ×2; 93005; 83880; 80053 ×2; 80048; 83605 ×3; 83735; 84484; 85025 ×2; 85610; 85730; 87502; 83036; 84145; 87635; 71046; G0378 ×3; J2920 ×2; J2930; J3475; J1644 ×2

== ENCOUNTER → 2022-02-27 | Outpatient (CLI) | payer OTHER ==
[2022-02-27 18:50] LABS: Basophils # (A) 0.06 X 10*3/uL (0.00-0.10); Basophils % (A) 0.9 %; Eosinophils # (A) 0.29 X 10*3/uL (0.04-0.35); Eosinophils % (A) 4.2 %; HCT 43.9 % (39.6-50.0); HGB 14.7 g/dL (13.0-17.0); Immature Grans, Automated 0.3 %; Lymphocytes # (A) 1.76 X 10*3/uL (0.90-5.00); Lymphocytes % (A) 25.5 %; MCH 27.9 pg (27.0-32.0); MCHC 33.5 g/dL (32.0-37.0); MCV 83.5 fL (80.0-97.0); Mean Platelet Volume 11.8 fL (9.5-12.2); Monocytes # (A) 0.64 X 10*3/uL (0.20-1.00); Monocytes % (A) 9.3 %; NRBC Per 100 WBC 0 /100 WBCS (0.0-0.0); Neutrophils # (A) 4.14 X 10*3/uL (1.80-7.70); Neutrophils % (A) 59.8 %; Platelet Count 213 X 10*3/uL (140-440); RBC 5.26 X 10*6/uL (4.40-5.60); RDW 12.8 % (11.5-14.5); WBC 6.91 X 10*3/uL (4.50-10.00)
[2022-02-27 19:25] LABS: African American GFR (CKD) 97.8 (60.0-200.0); Albumin 4.6 g/dL (3.8-4.9); Albumin/Globulin Ratio 1.92 (1.60-3.17); Anion Gap 13.4 mmol/L (10.00-18.00); BUN/Creat Ratio 12.4 Ratio (12.00-20.00); Blood Urea Nitrogen 12.4 mg/dL (9.0-27.0); Calcium 9.8 mg/dL (8.7-10.3); Carbon Dioxide 27.6 mmol/L (20.0-27.5); Globulin 2.4 g/dL (1.6-3.3); Non-African American GFR(CKD) 84.4 (60.0-200.0); Potassium 4.4 mmol/L (3.5-5.5); Total Bilirubin 0.4 mg/dL (0.30-1.20)
== END | disposition home or self-care (01) ==
LOC: LABWHC1 11:10
PROVIDERS: ATTEND Family Medicine
DX: E11.9 Type 2 diabetes mellitus without complications (principal)
CPT/HCPCS: 36415; 80053; 83036; 85025

== ENCOUNTER → 2022-06-29 | Outpatient (CLI) | payer OTHER ==
--- NOTE | 2022-06-30 12:34 | CA ---
Transthoracic Echo Report Name: Washington Johnson Age: 56 Gender: M : 1965 Exam Date: 06/29/2022 08:42 Exam Location: [facility] Ht (in): 69 Wt (lb): 289 Ordering Physician: Arturo Moran MD Attending/Referring Phys: [id number], Dean Emergency Preparedness Coordinator Luz Barker ANDRADE Procedure CPT: Indications: i10 Cardiac Hx: Technical Quality: Fair Contrast 1: Total Dose (mL): Contrast 2: Total Dose (mL): MEASUREMENTS (Male / Female) Normal Values 2D ECHO LV Diastolic Diameter PLAX 4.5 cm 4.2 - 5.9 / 3.9 - 5.3 cm LV Systolic Diameter PLAX 2.3 cm IVS Diastolic Thickness 1.4 cm 0.6 - 1.0 / 0.6 - 0.9 cm LVPW Diastolic Thickness 1.2 cm 0.6 - 1.0 / 0.6 - 0.9 cm LV Relative Wall Thickness 0.6 RV Internal Dim ED PLAX 4.1 cm LA Volume 57.2 cm??? 18 - 58 / 22 - 52 cm??? M-MODE Aortic Root Diameter MM 2.4 cm LA Systolic Diameter MM 2.7 cm LA Ao Ratio MM 1.1 AV Cusp Separation MM 1.7 cm DOPPLER AV Peak Velocity 128.6 cm/s AV Peak Gradient 6.6 mmHg AV Mean Velocity 89.4 cm/s AV Mean Gradient 3.5 mmHg AV Velocity Time Integral 27.6 cm LVOT Peak Velocity 91.5 cm/s LVOT Peak Gradient 3.4 mmHg LVOT Velocity Time Integral 19.1 cm MV Area PHT 3.3 cm??? Mitral E Point Velocity 61.9 cm/s Mitral A Point Velocity 85.9 cm/s Mitral E to A Ratio 0.7 MV Deceleration Time 229.2 ms MV E' Velocity 6.7 cm/s Mitral E to MV E' Ratio 9.3 TR Peak Velocity 177.3 cm/s TR Peak Gradient 12.6 mmHg Right Ventricular Systolic Press 17.5 mmHg FINDINGS Left Ventricle Moderately increased left ventricular wall thickness. Left ventricular cavity size normal. Normal left ventricular systolic function with no obvious regional wall motion abnormalities. Left ventricular ejection fraction is estimated at 55-60%. Right Ventricle Moderate right ventricular dilatation. Right ventricular systolic pressure within normal limits. Right Atrium Normal right atrial size. Left Atrium Normal left atrial size. Mitral Valve Structurally normal mitral valve. No mitral stenosis, regurgitation or prolapse. Aortic Valve No aortic valve stenosis or regurgitation. Tricuspid Valve Mild tricuspid regurgitation. Pulmonic Valve Structurally normal pulmonic valve. Trace pulmonic regurgitation. Pericardium No pericardial effusion. Aorta Normal size aortic root and proximal ascending aorta. CONCLUSIONS Left ventricular ejection fraction 55-60% Moderate increased left ventricular wall thickness No mitral regurgitation Mild tricuspid regurgitation RVSP 17 Previewed by: Dr. Rg Hidalgo DO (Electronically Signed) Final Date: 30 June 2022 12:33
== END | disposition home or self-care (01) ==
LOC: RADECHMAIN 08:25
PROVIDERS: ATTEND Family Medicine
DX: I07.1 Rheumatic tricuspid insufficiency (principal); I10 Essential (primary) hypertension
CPT/HCPCS: 93306

== ENCOUNTER → 2022-08-23 | Outpatient (CLI) | payer OTHER ==
[2022-08-23 15:54] LABS: ALT 70 U/L (10-49); AST 36 U/L (14-35); Albumin 4.7 d/dL (3.8-4.9); Albumin/Globulin Ratio 1.81 Ratio (1.60-3.17); Alkaline Phosphatase 92 U/L (41-126); BUN/Creat Ratio 16.78 Ratio (12.00-20.00); Blood Urea Nitrogen 15.1 mg/dL (9.0-27.0); Calcium 9.6 mg/dL (8.7-10.3); Chloride 98 mmol/L (96-109); Chol/HDL Ratio 4.54 Ratio; Globulin 2.6 d/dL (1.6-3.3); Glucose 245 mg/dL (70-110); LDL Cholesterol,Calculated 87.9 mg/dL (0.0-131.0); Potassium 4.4 mmol/L (3.5-5.5); Sodium 138 mmol/L (135-145); Total Bilirubin 0.5 mg/dL (0.3-1.2); Total Protein 7.3 d/dL (6.2-8.2)
[2022-08-23 20:35] LABS: HCT 43.8 % (39.6-50.0); HGB 14.8 d/dL (12.0-15.0); MCH 28.1 pg (27.0-32.0); MCHC 33.8 d/dL (32.0-37.0); MCV 83.3 FL (80.0-97.0); Mean Platelet Volume 11.9 FL (9.5-12.2); NRBC Per 100 WBC 0 X 10*3/uL (0.00-0.01); Platelet Count 209 X 10*3/uL (140-440); RBC 5.26 X 10*6/uL (4.40-5.60); RDW 12.7 % (11.5-14.5); WBC 7.16 X 10*3/uL (4.50-10.00)
== END | disposition home or self-care (01) ==
LOC: LABWHC1 10:14
PROVIDERS: ATTEND Family Medicine
DX: E11.9 Type 2 diabetes mellitus without complications (principal)
CPT/HCPCS: 36415; 80053; 80061; 83036; 84443; 85027